=== PATIENT | female | born 1950 | race Hispanic/Latino ===

== ENCOUNTER → 2022-02-02 10:19 | Outpatient (CLI) | payer MEDICARE, SELFPAY ==
--- NOTE | 2022-02-02 | DI.RAD.S_ITS ---
PROCEDURE: XR LUMBAR SPINE 2-3V INDICATIONS: BACK PAIN TECHNIQUE: 3 views of the lumbar spine were acquired. COMPARISON: None. FINDINGS: Bones: 5 [id number] vertebrae are present. The multilevel endplate degenerative changes are seen. There is facet arthrosis in the lower lumbar spine. There is anterolisthesis of L5-S1. There is normal bony alignment. No vertebral body compression fractures. No suspicious bony lesions. The sacroiliac joints have degenerative changes. Soft tissues: Overlying bowel gas pattern is normal. No suspicious soft tissue calcifications. IMPRESSION: Multilevel lumbar spondylosis with degenerative disc disease and facet arthrosis with grade 1 anterolisthesis of L5-S1. Dictated by: Philip Phipps M.D. on 02/02/2022 at 13:03 Approved by: Philip Phipps M.D. on 02/02/2022 at 13:06
--- NOTE | 2022-02-02 | DI.RAD.S_ITS ---
PROCEDURE: XR KNEE RT 3V INDICATIONS: KNEE PAIN TECHNIQUE: 3 views of the knee were acquired. COMPARISON: None. FINDINGS: Bones: No acute fractures or dislocations. No suspicious bony lesions. Moderate joint space narrowing is seen at the medial femorotibial compartment with mild subchondral sclerosis and small marginal osteophytes. Small marginal osteophytes are also seen at the lateral and anterior compartments. There is mild to moderate narrowing of the lateral portion of the patellofemoral joint space. Soft tissues: Small joint effusion. No suspicious soft tissue calcifications. 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 Small joint effusion. Dictated by: Max Garnica M.D. on 02/02/2022 at 13:02 Approved by: Max Garnica M.D. on 02/02/2022 at 13:03
--- NOTE | 2022-02-02 | DI.RAD.S_ITS ---
PROCEDURE: XR KNEE LT 3V INDICATIONS: KNEE PAIN TECHNIQUE: Three views of the knee were acquired. COMPARISON: None. FINDINGS: Bones: No acute fractures or dislocations. No suspicious bony lesions. Moderate joint space narrowing of the medial femorotibial compartment with subchondral sclerosis and marginal osteophyte formation. Marginal osteophytes are also seen at the lateral and anterior compartments and there is mild to moderate narrowing of the patellofemoral compartment joint space. Soft tissues: No joint effusion. No suspicious soft tissue calcifications. IMPRESSION: Tricompartmental osteoarthrosis is worst and moderate in severity at the medial femorotibial compartment. Dictated by: Max Garnica M.D. on 02/02/2022 at 13:01 Approved by: Max Garnica M.D. on 02/02/2022 at 13:02
== END ==
PROVIDERS: PCP Family Medicine; Referring Provider Family Medicine; Visit Provider Family Medicine
DX: M51.16 Intervertebral disc disorders with radiculopathy, lumbar region (principal); M47.26 Other spondylosis with radiculopathy, lumbar region; M43.17 Spondylolisthesis, lumbosacral region; M17.0 Bilateral primary osteoarthritis of knee; M25.561 Pain in right knee; M25.562 Pain in left knee
CPT/HCPCS: 72100; 73562

== ENCOUNTER → 2022-03-09 09:29 | Outpatient (CLI) | payer MEDICARE, SELFPAY | PROVIDERS: PCP Family Medicine; Referring Provider Family Medicine; Visit Provider Family Medicine | DX: Z13.820 Encounter for screening for osteoporosis (principal); Z78.0 Asymptomatic menopausal state; M85.852 Other specified disorders of bone density and structure, left thigh | CPT/HCPCS: 77080 ==

== ENCOUNTER → 2022-06-29 10:42 | Outpatient (CLI) | payer OTHER, SELFPAY ==
--- NOTE | 2022-06-29 | DI.MG.S_ITS ---
BILATERAL DIGITAL SCREENING MAMMOGRAM 3D/2D WITH CAD: 06/29/2022 CLINICAL: Routine screening. Comparison is made to exams dated: 06/29/2022 mammogram - [facility] and 05/14/2019 mammogram - Outside facility. There are scattered areas of fibroglandular density in both breasts (category b / 25%-50% glandular tissue). Current study was also evaluated with a Computer Aided Detection (CAD) system. No significant masses, calcifications, or other findings are seen in either breast. There has been no significant interval change. IMPRESSION: NEGATIVE There is no mammographic evidence of malignancy. A 1 year screening mammogram is recommended. Based on the Tyrer Cuzick model (a risk assessment model) the patient's lifetime risk is 5.4% and her 10 year risk is 4.0%. According to the ACR, ACS, and NCCN guidelines, an annual breast MRI exam along with mammogram is recommended if the patient's lifetime risk is 20% or greater. This exam was interpreted at Station ID: [id number]. NOTE: For mammograms, a report in lay terms will be sent to the patient. Approximately 15% of breast malignancies will not be visualized mammographically. In the management of a palpable breast mass, a negative mammogram must not discourage biopsy of a clinically suspicious lesion. Electronically Signed By: Max [email or web address]/[email or web address]:06/29/2022 12:07:33 letter sent: Normal Exam ACR BI-RADS Category 1: Negative [id number]
== END ==
PROVIDERS: PCP Family Medicine; Referring Provider Family Medicine; Visit Provider Family Medicine
DX: Z12.31 Encounter for screening mammogram for malignant neoplasm of breast (principal)
CPT/HCPCS: 77063; 77067